=== PATIENT | female | born 1985 ===

== ENCOUNTER 2018-06-09 06:07 | Inpatient (IN) | payer SELFPAY ==
[2018-06-09] MEDS ORDERED: Nalbuphine 10 MG/1 ML Vial IVPUSH PRN (06:17)
[2018-06-09] MEDS ORDERED: Sodium Chloride 0.9% 2.5 ML Syringe FLUSH PRN (06:17)
[2018-06-09] MEDS ORDERED: Tranexamic Acid 1,000 MG in Sodium Chloride 0.9% 100 ML IV PRN (06:17)
[2018-06-09] MEDS ORDERED: Sodium Chloride 0.9% 10 ML SDV IV PRN (06:17)
[2018-06-09] MEDS ORDERED: Sodium Chloride 0.9% 10 ML Syringe FLUSH PRN (06:17)
[2018-06-09] MEDS ORDERED: Methylergonovine 0.2 MG/1 ML Amp IM PRN (06:17)
[2018-06-09] MEDS ORDERED: Carboprost Tromethamine 250 MCG/1 ML Amp IM PRN (06:17)
[2018-06-09] MEDS ORDERED: Misoprostol 200 MCG Tab PO PRN (06:17)
[2018-06-09] MEDS ORDERED: Butorphanol 1 MG/ML SDV IVPUSH PRN (06:17)
[2018-06-09] MEDS ORDERED: Water For Irrigation,Sterile 1,000 ML Container IRR PRN (06:17)
[2018-06-09] MEDS ORDERED: Lidocaine 1% 50 ML MDV INJECT PRN (06:17)
[2018-06-09] MEDS ORDERED: Oxytocin/0.9 % Sodium Chloride 30 UNIT/500 ML BAG IV SCH (06:30)
[2018-06-09] MEDS: Lactated Ringers 1,000 ML IV SCH ×2 (07:00→07:58)
[2018-06-09] MEDS ORDERED: fentaNYL 100 MCG/2 ML SDV ONE (07:02)
--- NOTE | 2018-06-09 07:11 | PCM.LDHP ---
L&D History of Present Illness - General Date of Service: 06/09/18 Admit Problem/Dx: Patient Status Order with Admit Dx/Problem 06/09/18 06:17 Patient Status [ADT] Routine Admission Diagnosis/Problem Admission Diagnosis/Problem - planned 06/09/18 07:06 32yo EDC 06/17/2018 38 6/7wks Comes in active labor, NKDA, O+, RI, GBS neg Source of Information: Patient History Limitations: Reports: No Limitations - History of Present Illness Timing/Duration: Reports: minutes: Location, : Reports: Abdomen Quality: Reports: Stabbing Improves with: Reports: None Worsens with: Reports: None Associated Symptoms: Reports: N - Related Data Allergies/Adverse Reactions: Allergies Allergy/AdvReac Type Severity Reaction Status Date / Time No Known Allergies Allergy Verified 03/25/16 12:43 Past Medical History - Past Health History Medical/Surgical History: Denies 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: Social & Family History - Family History Family Medical History: Noncontributory H&P Review of Systems - Review of Systems: Review Of Systems: See Below General: Reports: No Symptoms HEENT: Reports: No Symptoms Pulmonary: Reports: No Symptoms Cardiovascular: Reports: No Symptoms Gastrointestinal: Reports: No Symptoms Genitourinary: Reports: No Symptoms Musculoskeletal: Reports: No Symptoms Skin: Reports: No Symptoms Psychiatric: Reports: No Symptoms Neurological: Reports: No Symptoms Hematologic/Lymphatic: Reports: No Symptoms Immunologic: Reports: No Symptoms L&D Exam - Exam Exam: See Below - OB Specific Contraction Intensity: Strong Movement: Active Heart Tones: Present Heart Tones per Min: 135 Heart Rate (FHR) Variability: Moderate (6-25 bmp) Presentation: Vertex - Martinez Score Martinez Score Cervix Position: Anterior Martinez Score Consistency: Soft Martinez Score Effacement: >80% Martinez Score Dilation: > 5 cm Martinez Score Infant's Station: -1 ,0 Martinez Score Total: 12 - Exam General: Alert, Oriented, Cooperative, Mild Distress HEENT: Hearing Intact Lungs: Clear to Auscultation, Normal Respiratory Effort Cardiovascular: Regular Rate, Regular Rhythm, Normal S1, Normal S2 Rectal Exam: Deferred Genitourinary: Normal external exam, Normal bimanual exam, Cervical dilitation Back Exam: Normal Inspection, Full Range of Motion Extremities: Normal Inspection, Normal Range of Motion, Non-Tender, No Pedal Edema, Normal Capillary Refill Skin: Warm, Dry, Intact Neurological: Cranial Nerves Intact, Strength Equal Bilateral, Normal Speech, Normal Tone Psychiatric: Alert, Normal Affect, Normal Mood - Patient Data Lab Results Last 24 hrs: Laboratory Results - last 24 hr 06/09/18 Range/Units 06:36 WBC 8.08 (4.0-11.0) K/uL RBC 4.27 L (4.30-5.90) M/uL Hgb 13.1 (12.0-16.0) g/dL Hct 37.3 (36.0-46.0) % MCV 87.4 (80.0-98.0) fL MCH 30.7 (27.0-32.0) pg MCHC 35.1 (31.0-37.0) g/dL RDW Std Deviation 50.2 (28.0-62.0) fl RDW Coeff of Adelina 16 H (11.0-15.0) % Plt Count 140 L (150-400) K/uL MPV 10.20 (7.40-12.00) fL Nucleated RBC % 0.0 /100WBC Nucleated RBCs # 0 K/uL Result Diagrams: 06/09/18 06:36 - Problem List (1) Supervision of normal IUP (intrauterine ) in multigravida SNOMED Code(s): 915963505, 317789904, 665648546 ICD Code: Z34.90 - ENCNTR FOR SUPRVSN OF NORMAL , UNSP, UNSP TRIMESTER Status: Acute Priority: High Current Visit: No Qualifiers: Trimester: third trimester Qualified Code(s): Z34.83 - Encounter for supervision of other normal , third trimester Problem List Initiated/Reviewed/Updated: Yes Orders Last 24hrs: Active Orders 24 hr Category Date Time Status Patient Status [ADT] Routine ADT 06/09/18 06:17 Active Heart Tones [RC] CONTINUOUS Care 06/09/18 06:17 Active Non Stress Test [RC] PER UNIT ROUTINE Care 06/09/18 06:17 Active May Shower [RC] ASDIRECTED Care 06/09/18 06:17 Active Notify Provider [RC] PRN Care 06/09/18 06:17 Active Up ad Alejandra [RC] ASDIRECTED Care 06/09/18 06:17 Active Vaginal Exam [RC] PRN Care 06/09/18 06:17 Active Vital Signs [RC] PER UNIT ROUTINE Care 06/09/18 06:17 Active TYPE AND SCREEN [BBK] Routine Lab 06/09/18 06:36 Received Butorphanol [Stadol] Med 06/09/18 06:17 Active 1 mg IVPUSH Q1H PRN Carboprost Tromethamine [Hemabate DS] Med 06/09/18 06:17 Active 250 mcg IM ASDIRECTED PRN Lactated Ringers [Ringers, Lactated] 1,000 ml Med 06/09/18 06:30 Active IV ASDIRECTED Lidocaine 1% [Xylocaine 1%] Med 06/09/18 06:17 Active 50 ml INJECT ONETIME PRN Methylergonovine [Methergine] Med 06/09/18 06:17 Active 0.2 mg IM ASDIRECTED PRN Nalbuphine [Nubain] Med 06/09/18 06:17 Active 10 mg IVPUSH Q1H PRN Oxytocin/0.9 % Sodium Chloride [Oxytocin 30 Unit/500 ML Med 06/09/18 06:30 Active -NS] 30 unit in 500 ml IV TITRATE Sodium Chloride 0.9% [Normal Saline] Med 06/09/18 06:17 Active 10 ml IV ASDIRECTED PRN Sodium Chloride 0.9% [Saline Flush] Med 06/09/18 06:17 Active 10 ml FLUSH ASDIRECTED PRN Sodium Chloride 0.9% [Saline Flush] Med 06/09/18 06:17 Active 2.5 ml FLUSH ASDIRECTED PRN Tranexamic Acid [Cyklokapron] 1,000 mg Med 06/09/18 06:17 Active Sodium Chloride 0.9% [Normal Saline] 100 ml IV ONETIME Water For Irrigation,Sterile [Sterile Water for Med 06/09/18 06:17 Active Irrigation] 1,000 ml IRR ASDIRECTED PRN miSOPROStol [Cytotec] Med 06/09/18 06:17 Active 200 mcg PO ONETIME PRN Scalp Electrode [WOMSER] Per Unit Routine Oth 06/09/18 06:17 Ordered Peripheral IV Insertion Adult [OM.PC] Routine Oth 06/09/18 06:17 Ordered Resuscitation Status Routine Resus Stat 06/09/18 06:17 Ordered Medication Orders Butorphanol Tartrate (Stadol) 1 mg IVPUSH Q1H PRN PRN Reason: Pain Carboprost Tromethamine (Hemabate Ds) 250 mcg IM ASDIRECTED PRN PRN Reason: Post Hemorrhage Lactated Ringer's (Ringers, Lactated) 1,000 mls @ 150 mls/hr IV ASDIRECTED SAMANTHA Oxytocin/Sodium Chloride (Oxytocin 30 Unit/500 Ml-Ns) 30 unit in 500 mls @ 500 mls/hr IV TITRATE SAMANTHA Tranexamic Acid 1,000 mg/ (Sodium Chloride) 110 mls @ 660 mls/hr IV ONETIME PRN PRN Reason: Bleeding Lidocaine HCl (Xylocaine 1%) 50 ml INJECT ONETIME PRN PRN Reason: Laceration repair Methylergonovine Maleate (Methergine) 0.2 mg IM ASDIRECTED PRN PRN Reason: Post Hemorrhage Misoprostol (Cytotec) 200 mcg PO ONETIME PRN PRN Reason: Post Hemorrhage Nalbuphine HCl (Nubain) 10 mg IVPUSH Q1H PRN PRN Reason: Pain (severe 7-10) Sodium Chloride (Saline Flush) 10 ml FLUSH ASDIRECTED PRN PRN Reason: Keep Vein Open Sodium Chloride (Saline Flush) 2.5 ml FLUSH ASDIRECTED PRN PRN Reason: Keep Vein Open Sodium Chloride (Normal Saline) 10 ml IV ASDIRECTED PRN PRN Reason: IV Use Sterile Water (Sterile Water For Irrigation) 1,000 ml IRR ASDIRECTED PRN PRN Reason: delivery Assessment/Plan Comment:: Labor A: 32yo EDC 06/17/2018 38 6/7wks Comes in active labor, NKDA, O+, RI, GBS neg P: Admit, epidural, anticipate . Dr Ragsdale updated
[2018-06-09] MEDS ORDERED: ePHEDrine 50 MG/ML SDV ONE (07:55)
[2018-06-09] MEDS ORDERED: Phenylephrine 1% 10 MG/ML SDV ONE (08:00)
[2018-06-09] MEDS ORDERED: Ibuprofen 400 MG Tab PO PRN (09:24)
[2018-06-09] MEDS ORDERED: Benzocaine/Menthol 20%-0.5% Spray 78 GM Cannister TOP PRN (09:24)
[2018-06-09] MEDS ORDERED: Acetaminophen 500 MG Tab PO PRN ×2 (09:24)
[2018-06-09] MEDS ORDERED: Witch Hazel Medicated Pads 40/Jar TOP PRN (09:24)
[2018-06-09] MEDS ORDERED: Docusate Sodium 100 MG Cap PO PRN (09:24)
[2018-06-09] MEDS ORDERED: Bisacodyl 10 MG Supp RECTAL PRN (09:24)
[2018-06-09] MEDS ORDERED: Lanolin 100% Cream 7 GM Tube TOP PRN (09:24)
--- NOTE | 2018-06-09 09:47 | PCM.DEL ---
L & D Note - General Info Date of Service: 06/09/18 Mother's Due Date: 06/17/18 - Delivery Note Labor: Spontaneous, Augmented by ARM Delivery Outcome: Livebirth Delivery Mode: Spontaneous Presentation: Vertex Nuchal Cord: Present (x1 loose, reduced) Anesthesia Type: Intrathecal Amniotic Fluid Description: Clear Episiotomy Type: None Laceration: 1st Degree (repaired) Suture type: Vicryl Suture size: 3-0 Placenta: Intact, Spontaneous Cord: 3 Vessels Estimated Blood Loss: 150 Resuscitation Needed: No [place]: Stimulated Provider: Luis Ragsdale Score 1 min: 9 Score 5 min: 9 Second Stage Interventions: Reports: Pushing Effectively (Delivered by nurse) Delivery Comments (Free Text/Narrative):: of viable female, head delivered by nurse with shoulders and body following easily afterward, loose nuchal x1 easily reduced, baby to mother's abdomen, cord doubly clamped and cut by FOB, placenta delivered grossly intact, 3VC, EBL 150 mL, 1st degree laceration repaired by Dr. Ragsdale with 3-0 vicryl, hemostatic, weight 7 lb 2 oz, APGARS 9/9, mom and baby left in stable condition with nurse at bedside - General Info Date of Service: 06/09/18 Admission Dx/Problem (Free Text): Patient Status Order with Admit Dx/Problem 06/09/18 06:17 Patient Status [ADT] Routine Admission Diagnosis/Problem Admission Diagnosis/Problem - planned 06/09/18 07:06 32yo EDC 06/17/2018 38 6/7wks Comes in active labor, NKDA, O+, RI, GBS neg Functional Status: Reports: Pain Controlled - Review of Systems General: Reports: No Symptoms HEENT: Reports: No Symptoms Pulmonary: Reports: No Symptoms Cardiovascular: Reports: No Symptoms Gastrointestinal: Reports: No Symptoms Genitourinary: Reports: No Symptoms Musculoskeletal: Reports: No Symptoms Skin: Reports: No Symptoms Neurological: Reports: No Symptoms Psychiatric: Reports: No Symptoms - Patient Data Lab Results Last 24 Hours: Laboratory Results - last 24 hr 06/09/18 06/09/18 Range/Units 06:36 06:36 WBC 8.08 (4.0-11.0) K/uL RBC 4.27 L (4.30-5.90) M/uL Hgb 13.1 (12.0-16.0) g/dL Hct 37.3 (36.0-46.0) % MCV 87.4 (80.0-98.0) fL MCH 30.7 (27.0-32.0) pg MCHC 35.1 (31.0-37.0) g/dL RDW Std Deviation 50.2 (28.0-62.0) fl RDW Coeff of Adelina 16 H (11.0-15.0) % Plt Count 140 L (150-400) K/uL MPV 10.20 (7.40-12.00) fL Nucleated RBC % 0.0 /100WBC Nucleated RBCs # 0 K/uL Blood Type O POSITIVE Antibody Screen NEGATIVE Med Orders - Current: Current Medications Acetaminophen (Tylenol Extra Strength) 500 mg PO Q4H PRN PRN Reason: Pain Acetaminophen (Tylenol Extra Strength) 1,000 mg PO Q4H PRN PRN Reason: Pain Benzocaine/Menthol (Dermoplast Pain Relief 20%-0.5% [place]) 78 gm TOP ASDIRECTED PRN PRN Reason: Perineal Comfort Measure Bisacodyl (Dulcolax) 10 mg RECTAL ONETIME PRN PRN Reason: Constipation Butorphanol Tartrate (Stadol) 1 mg IVPUSH Q1H PRN PRN Reason: Pain Carboprost Tromethamine (Hemabate Ds) 250 mcg IM ASDIRECTED PRN PRN Reason: Post Hemorrhage Docusate Sodium (Colace) 100 mg PO BID PRN PRN Reason: Constipation Emollient Ointment (Lansinoh Hpa) 0 gm TOP ASDIRECTED PRN PRN Reason: Sore Nipples Lactated Ringer's (Ringers, Lactated) 1,000 mls @ 150 mls/hr IV ASDIRECTED [facility] Last Admin: 06/09/18 07:58 Dose: 999 mls/hr Oxytocin/Sodium Chloride (Oxytocin 30 Unit/500 Ml-Ns) 30 unit in 500 mls @ 500 mls/hr IV TITRATE SAMANTHA Tranexamic Acid 1,000 mg/ (Sodium Chloride) 110 mls @ 660 mls/hr IV ONETIME PRN PRN Reason: Bleeding Ibuprofen (Motrin) 400 mg PO Q4H PRN PRN Reason: Pain Ibuprofen (Motrin) 800 mg PO Q6H PRN PRN Reason: Pain Lidocaine HCl (Xylocaine 1%) 50 ml INJECT ONETIME PRN PRN Reason: Laceration repair Methylergonovine Maleate (Methergine) 0.2 mg IM ASDIRECTED PRN PRN Reason: Post Hemorrhage Misoprostol (Cytotec) 200 mcg PO ONETIME PRN PRN Reason: Post Hemorrhage Nalbuphine HCl (Nubain) 10 mg IVPUSH Q1H PRN PRN Reason: Pain (severe 7-10) Oxycodone HCl (Oxycodone) 5 mg PO Q2H PRN PRN Reason: Pain Sodium Chloride (Saline Flush) 10 ml FLUSH ASDIRECTED PRN PRN Reason: Keep Vein Open Sodium Chloride (Saline Flush) 2.5 ml FLUSH ASDIRECTED PRN PRN Reason: Keep Vein Open Sodium Chloride (Normal Saline) 10 ml IV ASDIRECTED PRN PRN Reason: IV Use Sterile Water (Sterile Water For Irrigation) 1,000 ml IRR ASDIRECTED PRN PRN Reason: delivery Witch Jocelin (Tucks) 1 pad TOP ASDIRECTED PRN PRN Reason: comfort care Discontinued Medications Ephedrine Sulfate (Ephedrine Sulfate) Confirm Administered Dose 50 mg .ROUTE .STK-MED ONE Stop: 06/09/18 07:56 Fentanyl (Sublimaze) Confirm Administered Dose 100 mcg .ROUTE .STK-MED ONE Stop: 06/09/18 07:03 Phenylephrine HCl (Ayan-Synephrine) Confirm Administered Dose 10 mg .ROUTE .STK- MED ONE Stop: 06/09/18 08:01 - Exam General: Alert, Oriented, Cooperative, No Acute Distress Lungs: Normal Respiratory Effort GI/Abdominal Exam: Soft, Non-Tender (Female) Exam: Vaginal Tears (1st degree, repaired) Back Exam: Full Range of Motion Extremities: Normal Range of Motion Skin: Warm, Dry, Intact Neurological: No New Focal Deficit Psy/Mental Status: Alert, Normal Affect, Normal Mood - Problem List & Annotations (1) (normal spontaneous vaginal delivery) SNOMED Code(s): 93766704 Code(s): O80 - ENCOUNTER FOR FULL-TERM UNCOMPLICATED DELIVERY Status: Acute Priority: High Current Visit: Yes - Problem List Review Problem List Initiated/Reviewed/Updated: Yes - Plan Plan:: Labor A: 32yo EDC 06/17/2018 38 6/7wks Comes in active labor, NKDA, O+, RI, GBS neg P: Admit, epidural, anticipate . Dr Ragsdale updated Delivery A: of viable female, head delivered by nurse with shoulders and body following easily afterward, loose nuchal x1 easily reduced, baby to mother's abdomen, cord doubly clamped and cut by FOB, placenta delivered grossly intact, 3VC, EBL 150 mL, 1st degree laceration repaired by Dr. Ragsdale with 3-0 vicryl, hemostatic, weight 7 lb 2 oz, APGARS 9/9, mom and baby left in stable condition with nurse at bedside P: Routine plan of care
[2018-06-09] MEDS: Ibuprofen 800 MG Tab PO PRN ×2 (16:07→22:08)
[2018-06-09] MEDS: oxyCODONE 5 MG Tab PO PRN (16:07)
[2018-06-10] MEDS: Ibuprofen 800 MG Tab PO PRN (08:13)
[2018-06-10] MEDS: oxyCODONE 5 MG Tab PO PRN (08:13)
--- NOTE | 2018-06-10 11:00 | PCM.PNPP ---
- General Info Date of Service: 06/10/18 Functional Status: Reports: Pain Controlled - Review of Systems General: Reports: No Symptoms HEENT: Reports: No Symptoms Pulmonary: Reports: No Symptoms Cardiovascular: Reports: No Symptoms Gastrointestinal: Reports: No Symptoms Genitourinary: Reports: No Symptoms Musculoskeletal: Reports: No Symptoms Skin: Reports: No Symptoms Neurological: Reports: No Symptoms Psychiatric: Reports: No Symptoms - General Info Date of Service: 06/10/18 - Patient Data Vital Signs - Most Recent: Last Vital Signs Temp 36.7 C 06/10/18 04:05 Pulse 86 06/10/18 04:05 Resp 16 06/10/18 04:05 BP 103/56 L 06/10/18 04:05 Pulse Ox 98 06/10/18 04:05 Weight - Most Recent: 92.079 kg Lab Results - Last 24 Hours: Laboratory Results - last 24 hr 06/10/18 Range/Units 05:18 Hgb 11.6 L (12.0-16.0) g/dL Hct 33.7 L (36.0-46.0) % Med Orders - Current: Current Medications Acetaminophen (Tylenol Extra Strength) 500 mg PO Q4H PRN PRN Reason: Pain Acetaminophen (Tylenol Extra Strength) 1,000 mg PO Q4H PRN PRN Reason: Pain Last Admin: 06/09/18 19:33 Dose: 1,000 mg Benzocaine/Menthol (Dermoplast Pain Relief 20%-0.5% [place]) 78 gm TOP ASDIRECTED PRN PRN Reason: Perineal Comfort Measure Bisacodyl (Dulcolax) 10 mg RECTAL ONETIME PRN PRN Reason: Constipation Butorphanol Tartrate (Stadol) 1 mg IVPUSH Q1H PRN PRN Reason: Pain Carboprost Tromethamine (Hemabate Ds) 250 mcg IM ASDIRECTED PRN PRN Reason: Post Hemorrhage Docusate Sodium (Colace) 100 mg PO BID PRN PRN Reason: Constipation Emollient Ointment (Lansinoh Hpa) 0 gm TOP ASDIRECTED PRN PRN Reason: Sore Nipples Lactated Ringer's (Ringers, Lactated) 1,000 mls @ 150 mls/hr IV ASDIRECTED SAMANTHA Last Admin: 06/09/18 07:58 Dose: 999 mls/hr Oxytocin/Sodium Chloride (Oxytocin 30 Unit/500 Ml-Ns) 30 unit in 500 mls @ 500 mls/hr IV TITRATE SAMANTHA Tranexamic Acid 1,000 mg/ (Sodium Chloride) 110 mls @ 660 mls/hr IV ONETIME PRN PRN Reason: Bleeding Ibuprofen (Motrin) 400 mg PO Q4H PRN PRN Reason: Pain Ibuprofen (Motrin) 800 mg PO Q6H PRN PRN Reason: Pain Last Admin: 06/09/18 22:08 Dose: 800 mg Lidocaine HCl (Xylocaine 1%) 50 ml INJECT ONETIME PRN PRN Reason: Laceration repair Methylergonovine Maleate (Methergine) 0.2 mg IM ASDIRECTED PRN PRN Reason: Post Hemorrhage Misoprostol (Cytotec) 200 mcg PO ONETIME PRN PRN Reason: Post Hemorrhage Nalbuphine HCl (Nubain) 10 mg IVPUSH Q1H PRN PRN Reason: Pain (severe 7-10) Oxycodone HCl (Oxycodone) 5 mg PO Q2H PRN PRN Reason: Pain Last Admin: 06/09/18 16:07 Dose: 5 mg Sodium Chloride (Saline Flush) 10 ml FLUSH ASDIRECTED PRN PRN Reason: Keep Vein Open Sodium Chloride (Saline Flush) 2.5 ml FLUSH ASDIRECTED PRN PRN Reason: Keep Vein Open Sodium Chloride (Normal Saline) 10 ml IV ASDIRECTED PRN PRN Reason: IV Use Sterile Water (Sterile Water For Irrigation) 1,000 ml IRR ASDIRECTED PRN PRN Reason: delivery Witch Jocelin (Tucks) 1 pad TOP ASDIRECTED PRN PRN Reason: comfort care Discontinued Medications Ephedrine Sulfate (Ephedrine Sulfate) Confirm Administered Dose 50 mg .ROUTE .STK-MED ONE Stop: 06/09/18 07:56 Last Admin: 06/09/18 18:30 Dose: Not Given Fentanyl (Sublimaze) Confirm Administered Dose 100 mcg .ROUTE .STK-MED ONE Stop: 06/09/18 07:03 Last Admin: 06/09/18 18:30 Dose: Not Given Phenylephrine HCl (Ayan-Synephrine) Confirm Administered Dose 10 mg .ROUTE .STK- MED ONE Stop: 06/09/18 08:01 Last Admin: 06/09/18 18:30 Dose: Not Given - Interaction Disposition, : [place] in Room with Family Interaction: Holding Infant Support Person: - Recovery Exam Fundal Tone: Firm Fundal Level: 1 Fingerbreadths Below Umbilicus Fundal Placement: Midline Lochia Amount: Small Lochia Color: Rubra/Red Perineum Description: Intact, Minimal Bruising/Swelling Episiotomy/Laceration: Approximated Bladder Status: Nonpalpable, Voiding Urinary Elimination: Voided - Exam General: Alert, Oriented HEENT: Pupils Equal Neck: Supple Lungs: Clear to Auscultation, Normal Respiratory Effort Cardiovascular: Regular Rate, Regular Rhythm GI/Abdominal Exam: Normal Bowel Sounds, Soft, Non-Tender, No Organomegaly, No Distention, No Abnormal Bruit, No Mass, Pelvis Stable Extremities: Normal Inspection, Normal Range of Motion, Non-Tender, No Pedal Edema, Normal Capillary Refill Skin: Warm, Dry, Intact Wound/Incisions: Healing Well Neurological: No New Focal Deficit Psy/Mental Status: Alert, Normal Affect, Normal Mood - Problem List Review Problem List Initiated/Reviewed/Updated: Yes - My Orders Last 24 Hours: My Active Orders 06/09/18 Lunch Regular Diet [DIET] - Plan Plan:: Labor A: 32yo EDC 06/17/2018 38 6/7wks Comes in active labor, NKDA, O+, RI, GBS neg P: Admit, epidural, anticipate . Dr Ragsdale updated Delivery A: of viable female, head delivered by nurse with shoulders and body following easily afterward, loose nuchal x1 easily reduced, baby to mother's abdomen, cord doubly clamped and cut by FOB, placenta delivered grossly intact, 3VC, EBL 150 mL, 1st degree laceration repaired by Dr. Ragsdale with 3-0 vicryl, hemostatic, weight 7 lb 2 oz, APGARS 9/9, mom and baby left in stable condition with nurse at bedside P: Routine plan of care
[2018-06-10 17:20] VITALS: BP 117/72
== END 2018-06-10 13:20 | disposition home or self-care (01) | DRG 807 ==
LOC: MW.OBCHECK 06:07 → MW.OB 06:08 → MW.OBCHECK 06:17 → MW.OB 06:17 → OBSVTOIN 09:15 → MW.OB 16:50
PROVIDERS: ADMIT Obstetrics & Gynecology; ATTEND Obstetrics & Gynecology
PROC: 10E0XZZ Delivery of Products of Conception, External Approach (ICD-10-PCS; principal; 2018-06-09)
PROC: 10907ZC Drainage of Amniotic Fluid, Therapeutic from Products of Conception, Via Natural or Artificial Opening (ICD-10-PCS; principal; 2018-06-09)
PROC: 0HQ9XZZ Repair Perineum Skin, External Approach (ICD-10-PCS; principal; 2018-06-09)
PROC: 00HU33Z Insertion of Infusion Device into Spinal Canal, Percutaneous Approach (ICD-10-PCS; 2018-06-09)
PROC: 3E0R3BZ Introduction of Anesthetic Agent into Spinal Canal, Percutaneous Approach (ICD-10-PCS; 2018-06-09)
DX: O69.81X0 Labor and delivery complicated by cord around neck, without compression, not applicable or unspecified (principal); Z37.0 Single live birth; O70.0 First degree perineal laceration during delivery; Z3A.38 38 weeks gestation of pregnancy
CPT/HCPCS: 36415; 59025; 59409; 85014; 85018; 85027; 86850; 86900; 86901; A9270-GY; J2370; J7120